=== PATIENT | female | born 2005 | race Caucasian/White ===

== ENCOUNTER 2024-04-29 23:38 | Emergency (ER) | payer MEDICAID, SELFPAY ==
[2024-04-29 23:43] VITALS: BP 134/78; PULSE 89; RESP 18; TEMP 37.2; O2SAT 97; O2SAT 99; BMI 28.0
--- NOTE | 2024-04-29 23:50 | ED.GENADULT ---
HPI - General Adult General Chief complaint: Unspecified Complaint, Adult Stated complaint: Swollen lymph nodes Time Seen by Provider: 04/30/24 00:21 History of Present Illness HPI narrative: CC: Swollen Lymph Nodes pt. seen in urgent care on 04/27/24--mono and strep was negative. wbc 15. comes in d /t swelling getting worse. was prescribed zpak. denies fevers, n/v, diarrhea. 18-year-old young woman presenting to the emergency department with concern of intensely sore throat. Has been sick for about 5 days and after a day or 2 of illness was seen in urgent care tested for mono and strep which was negative at that time. White count is little bit elevated. For apparent tonsillitis was initiated on azithromycin as a Z-Ammon. Has not had a fever. No rashes. Really hurts to swallow but not having trouble breathing. I note her also to be congested in the nasopharynx and she says this is relatively constant state of affairs with allergies. She is not having any abdominal pain. No particular illness exposure; no known mono exposure. Here with apparent boyfriend. They are planning to travel this holiday to [place] to visit his family. She is also expressing concern of a loss of hearing particularly in her right ear for some time now. Sometimes a ringing I believe. History of occasional need for steroids for suspected fibrotic lung disease or something like that. Related Data Home Medications ?Medication ?Instructions ?Recorded ?Confirmed albuterol 90 mcg-budesonide 80 2 inh inhalation ONCE 04/27/24 04/29/24 mcg/actuation HFA aerosol inhaler Previous Rx's ?Medication ?Instructions ?Recorded azithromycin 250 mg tablet See Rx Instructions PO .COMPLEX #6 04/27/24 (Zithromax Z-Ammon) tabs clindamycin HCl 300 mg capsule 300 mg PO Q6H 8 days #32 caps 04/30/24 Allergies Allergy/AdvReac Type Severity Reaction Status Date / Time Penicillins AdvReac Severe Anaphylaxis Verified 04/29/24 23:50 Review of Systems Status of ROS: Reports: 6 or more systems reviewed and unremarkable except as noted in History and below [facility] Medical History No significant past medical history Surgical History (Updated 04/30/24 @ 00:57 by Crow Williamson RN) No significant past surgical history Social History Smoking Status: Never smoker Second hand tobacco smoke exposure: No How often do you have a drink containing alcohol: never AUDIT-C Alcohol total score: 0 Non-prescribed substance use: denies use Exam Narrative: Exam Narrative: Very pleasant. Somewhat of a hot potato voice. Breathing easily. Lungs appear clear. Heart in regular rate and rhythm. There is no stridor. Does sound congested in the nasopharynx. There is no facial swelling erythema or tenderness. Bilateral TMs are occluded by dark cerumen. On the right side in particular it is a little deeper and I think would be encroaching on the tympanic membrane. Oropharynx is moist. Rather enlarged bilateral erythematous but not brightly-so tonsils with exudate. Symmetrically enlarged in size. I do not appreciate soft palate swelling. She also has symmetrical upper anterior cervical lymphadenopathy. No posterior lymphadenopathy. Neck is supple. Managing secretions. No trismus. Const: Vital Signs, click to edit/add: Vital Signs - 24 hr 04/29/24 23:43 04/29/24 23:43 04/30/24 02:03 Temperature 99.0 F 99.0 F Pulse Rate [Right Pulse Oximeter] 89 84 Respiratory Rate 18 18 Respiratory Rate [ Head] 18 Blood Pressure [Ri ght Upper Arm] 134/78 122/70 Pulse Oximetry 97 97 Oxygen Delivery Me thod Room Air Room Air 04/30/24 02:05 Temperature 99.0 F Pulse Rate [Right Pulse Oximeter] 84 Respiratory Rate 18 Respiratory Rate [ Head] Blood Pressure [Ri ght Upper Arm] 122/70 Pulse Oximetry Oxygen Delivery Me thod Documenting provider has reviewed patient's vital signs: yes Course Vital Signs Vital signs: Initial Vital Signs Temperature 99.0 F 04/29/24 23:43 Temperature Source Temporal Artery Scan 04/29/24 23:43 Pulse Rate 89 04/29/24 23:43 Respiratory Rate 18 04/29/24 23:43 Blood Pressure 134/78 04/29/24 23:43 Blood Pressure Mean 96 04/29/24 23:43 Blood Pressure Position Sitting 04/29/24 23:43 Pulse Oximetry 97 04/29/24 23:43 Oxygen Delivery Method Room Air 04/29/24 23:43 Vital Signs Temperature 99.0 F 04/29/24 23:43 Pulse Rate 89 04/29/24 23:43 Respiratory Rate 18 04/29/24 23:43 Blood Pressure 134/78 04/29/24 23:43 Pulse Oximetry 97 04/29/24 23:43 Oxygen Delivery Method Room Air 04/29/24 23:43 Temperature 99.0 F 04/30/24 02:05 Pulse Rate 84 04/30/24 02:05 Respiratory Rate 18 04/30/24 02:05 Blood Pressure 122/70 04/30/24 02:05 Pulse Oximetry 97 04/30/24 02:03 Oxygen Delivery Method Room Air 04/30/24 02:03 Medications Administered Medications: Discontinued Medications Generic Name Dose Route Start Last Admin Trade Name Jacob PRN Reason Stop Dose Admin Clindamycin HCl 300 mg 04/30/24 01:52 04/30/24 02:00 Clindamycin 150 Mg Capsule PO 04/30/24 01:53 300 mg ONCE ONE Administration Dexamethasone 12 mg 04/30/24 00:34 04/30/24 00:40 Dexamethasone 10 Mg/Ml Inj PO 04/30/24 00:35 12 mg ONCE ONE Administration Medical Decision Making MDM Narrative Medical decision making narrative: At a minimum has tonsillitis. Cause unclear but might be mononucleosis. Certainly possible that there are peritonsillar abscesses here although she is demonstrating no trismus and moving her neck without difficulty. Clearly the swelling though is affecting her speech. She is maintaining her secretions. TMs bilaterally are occluded and I would offer manual clean out and/or irrigation of her ears. I think would also benefit from steroid. I think symmetry is reassuring as is suppleness of neck movement and absence of trismus. I did offer CT imaging but I think that would at a minimum benefit from steroid dosing. She is familiar with steroids having received them for lungs before. Given dexamethasone. I did attempt manual removal of cerumen with ear curette. Did get some but this is as expected painful. Nursing returns to irrigate ears with 1:1 warm water and hydrogen peroxide. On reexamination still with significant cerumen but softer now on the right side. I do irrigate further and get nearly all of residual cerumen. Even after initial manual effort she had noted marked improvement in her hearing. Will monitor closely for worsening and potential need for imaging but I think will also change antibiotics to clindamycin and continue steroid course with prednisone. See patient discharge plan for further discussion Medical Records Medical records reviewed: Yes I reviewed the patient's medical records Discharge Plan Discharge Clinical Impression: Acute tonsillitis, Excessive cerumen in both ear canals, Allergic rhinitis Additional Instructions: A couple times a year you might benefit from placing some Debrox drops to help clear out your ear. Could than irrigate with warm 1:1 water to hydrogen peroxide. Considering your chronic nasal congestion/facial symptoms, you might benefit from regular use of [id number]-mudlfxy nasal steroid spray. I like 12 hour pseudoephedrine for decongestion myself. If you are desperate, oxymetazoline nasal spray can be beneficial but should not be used chronically; not more than 3-5 days at a time Can probably discontinue your last dose of azithromycin and we will switch up to clindamycin and prednisone from [facility]. (I apologize. We do not have any clindamycin in [facility] at the moment. Sending this in to your pharmacy) Sleep under the mist of a cool mist humidifier. Gargle with 1/4 tsp salt in 4 oz of warm water 2 - 3 times daily. Can take up to 600 mg of ibuprofen or up to 850 mg of acetaminophen per dose. Prescriptions: New clindamycin HCl 300 mg capsule 300 mg PO Q6H 8 Days Qty: 32 0RF No Action albuterol-budesonide 90-80 mcg/actuation HFA aerosol inhaler 2 inh inhalation ONCE Rx Instructions: as a single dose; may repeat up to 6 doses per day (12 inhalations) azithromycin [Zithromax Z-Ammon] 250 mg tablet See Rx Instructions PO .COMPLEX Qty: 6 0RF Rx Instructions: For 250 mg dose pack: take 500 mg today (day 1), then 250 mg for 4 days (days 2-5) PO Follow Up/Referrals: Provider,Not a Local [Primary Care Provider] - Stand Alone Forms: Shortlist Info Instructions
[2024-04-30] MEDS: dexAMETHasone 10 MG/ML inj 12 MG PO (00:40)
[2024-04-30] MEDS: CLINDAMYCIN 150 MG CAPSULE 300 MG PO (02:00)
[2024-04-30 02:03] VITALS: BP 122/70; PULSE 84; RESP 18; TEMP 37.2; O2SAT 97
[2024-04-30 02:05] VITALS: BP 122/70; PULSE 84; RESP 18; TEMP 37.2
== END 2024-04-30 02:05 | disposition home or self-care (01) ==
PROVIDERS: Emergency Provider Family Medicine
DX: J03.90 Acute tonsillitis, unspecified (principal); H61.23 Impacted cerumen, bilateral; J30.9 Allergic rhinitis, unspecified
CPT/HCPCS: 69210; 99283; 99284; A9270; J1100

== ENCOUNTER 2025-04-14 22:56 | Emergency (ER) | payer OTHER, BC, SELFPAY ==
--- OUTSIDE RECORDS SUMMARY | 2025-04-14 22:57 | XMS_ITS | Clinical Summary ---
Author Organization [facility] Address [address] [place] [address] Care Team Providers Care Hog Scraper Name Role Phone Unavailable Primary Care Provider Unavailabl e Allergies Active Allergy Reactions Criticality Noted Date Comments Penicillins Anaphylaxis,Hives High 08/08/2019 Medications beclomethasone (QVAR) 80 mcg/actuation inhaler Inhale 1 puff by mouth 2 (two) times a day. Active cetirizine (ZyrTEC) 10 MG tabletIndications :Environmental and seasonal allergies Take 1 tablet (10 mg total) by mouth at bedtime. 90 tablet 3 08/09/2019 10:00 AM MST 08/09/2019 Active albuterol 90 mcg/actuation inhalerIndication s:Mild intermittent asthma without complication Inhale 2 puffs by mouth every 4 (four) hours as needed for wheezing. 17 g 3 08/09/2019 10:45 AM MST 08/09/2019 Active Hospital, Clinic, or Other Facility Administered Medication Ordered Dose Route Frequency Start Date End Date Status ibuprofen (ADVIL) tablet 200 mgIndications:Tooth pain 200 mg oral Once 05/08/2016 Active Active Problems Problem Noted Date Diagnosed Date Status asthmaticus 08/08/2019 Mild intermittent asthma without complication Immunizations Immunization Administration Dates Next Due COVID-19 (Pfizer Monovalent, 12+ years) PURPLE CAP 09/28/2020,09/07/2020 DTaP 12/15/2007, 5,2003,10/23,2003 HPV-9 05/08/2016 Hepatitis A (Pediatric) 05/08/2016,06/26/2005 Hepatitis B (Pediatric) 10/29/2004,2003, Hib (PRP-T) 10/29/2004,2003,2003 IPV (Inactivated Polio Vaccine) 12/15/19 08,2003,2003,08/19 Influenza, Seasonal 08/09/2019(Deferred: - Will do at PCP) Influenza, Seasonal Pediatric 04/07/2016, 005,03/27/2004 MMR 12/15/2007,07/02/2004 Meningococcal MCV4P (Menactra) 05/08/2016 PCV7 (Pneumococcal Conjugate) 01/26/2005 ,10/29/2004,2003,09/11 Tdap 03/21/2015 Varicella 12/15/2007,07/02/2004 Family History Medical History Relation Name Comments Asthma Maternal Grandmother Cancer Mother Relation Name Status Comments Maternal Grandmother Mother Social History Tobacco Use Types Packs/Day Years Used Date Smoking Tobacco: Never Social Connections Answer Date Recorded Do your friends and family support you? Not on f ile 07/13/2020 What agencies support you? Not on file 07/13 Depression Answer Date Recorded Depression Not on file 12/05/2021 Transportation Needs Answer Date Record ed Lack reliable transportation Not on file 11/2020 Health Literacy Answer Date Recorded Understand medical condition Not on file 11/2020 Medication management Not on file 07/13/2020 Utilities Answer Date Recorded Financial Strain Not on file 06/18/2023 Comments Unknown Sex and Gender Information Value Date Recorded Sex Assigned at Female 08/08/2019 5:10 AM [facility] Legal Sex Female 12:06 PM [facility] Gender Identity Female 08/08/2019 5:10 AM [facility] Sexual Orientation Straight 08/08/2019 5: 10 AM [facility] Last Filed Vital Signs Vital Sign Reading Time Taken Comments Blood Pressure 111/54 08/08/2019 7:56 PM [facility] Pulse 96 08/09/2019 8:36 AM [facility] Temperature 37.4 C (99.3 F) 08/09/2019 8:36 AM [facility] Respiratory Rate 18 08/09/2019 8:36 AM [facility] Oxygen Saturation 92% 08/08/2019 8:00 PM MST Inhaled Oxygen Concentration - - Weight 71.2 kg (156 lb 15.5 oz) 08/08/2019 5:04 AM [facility] Height 165.1 cm (5' 5) 08/08/2019 5:04 AM [facility] Body Mass Index 26.12 08/08/2019 5:04 AM [facility] Plan of Treatment Health Maintenance Due Date Last Done Comments Chlamydia Screening 2003 Nutrition Education 2003 Pneumococcal Vaccine: 19-64 Years (1 of 2 - PPSV23) 03/23/2005 01/26/2005, 10/29/2004, 2003, Additional history exists Behavioral Health Screening 2015 HPV Vaccines (2 of 2 - Femal e/ Other 2-dose series) 11/06/2016 05/08/2016 Influenza Vaccine (#1) 2025 6, 07/02/2004, 03/27/2004 Tetanus Vaccines (DTaP,Tdap, Td) (7 - Td or Tdap) 03/21/2025 03/21/2015, 12/15/2007, 10/29/2004, Additional history exists Hepatitis B Vaccines Completed 10/29/2004, 10/29/2004, 2003, Additional history exists MMR Vaccine (Patient is immu ne to measles) Discontinued 12/15/2007, 07/02/2004 Varicella Vaccine (Patient i s immune to varicella) Discontinued 12/15/2007, 07/02/2004 Hepatitis A Vaccine (Patient is immune to Hepatitis A) Discontinued 05/08/2016, 06/26/2005 Insurance [facility] MEDICAID CHOICE Advance Directives * Full Code (Latest Code Status on File) Date Activated Date Inactivated Comments 08/08/2019 5:33 AM 08/09/2019 12:45 PM
--- OUTSIDE RECORDS SUMMARY | 2025-04-14 22:58 | XMS_ITS | Clinical Summary ---
Author Organization [facility] Address [address] [place], [place] [id number] Care Team Providers Care [employer] Assistant Principal Name Role Phone Javed Lucio MD Primary Care Prov ider Medications fluticasone (Flovent HFA) 110 MCG/ACT inhaler Inhale 1-2 puffs by mouth 2 times a day. 11/29/2019 Active cetirizine (Cetirizine HCl Childrens Alrgy) 5 MG/5ML syrup TAKE 10 ML BY MOUTH DAILY 03/19/2020 Active Active Problems Problem Noted Date Diagnosed Date Arthralgia 02/03/2019 Allergic shiners 02/03/2019 Abnormality of lung on CXR 02/03/2019 Acute back pain 02/03/2019 Bronchitis 02/03/2019 Encounter to establish care with new doctor 01/07 Asthma 02/03/2019 Social History Tobacco Use Types Packs/Day Years Used Date Smoking Tobacco: Never Assessed [facility] Housing Answer Date Recorded Living Situation Not on file 05/21/2023 Housing Problems Not on file 05/21/2023 [facility] Safety Answer Date Recorded Threatened Not on file 05/21/2023 Insulted Not on file 05/21/2023 Physically Hurt Not on file 05/21/2023 Scream Not on file 05/21/2023 Comments Unknown Sex and Gender Information Value Date Recorded Sex Assigned at Not on file Legal Sex Female 1:43 PM EST Gender Identity Not on file Sexual Orientation Not on file Plan of Treatment Not on file Care Teams [employer] Assistant Principal Relationship Specialty Start Date End Date Javed Lucio MD PCP - General Pediatrics 02/01/19
--- OUTSIDE RECORDS SUMMARY | 2025-04-14 22:58 | XMS_ITS | Clinical Summary ---
Author Organization [facility] Address [address] [place] [id number] Care Team Providers Care Insurance And Benefits Clerk Name Role Phone Delmar Annapepe REGGIE Primary Care Provider [phone] Allergies Active Allergy Reactions Criticality Noted Date Comments Penicillins Anaphylaxis,Hives High 08/08/2019 Medications cetirizine (ZYRTEC) 1 mg/mL ORAL solution Active beclomethasone dipropionate (QVAR REDIHALER) 40 mcg/actuation inhaler Inhale 1 puff into the lungs 2 times daily for Maintenance Therapy for Asthma. 10.6 g 3 2 Active budesonide (PULMICORT FLEXHALER) 90 mcg/actuation inhaler Inhale 1 puff into the lungs 2 times daily for Maintenance Therapy for Asthma. 1 each 3 2 Active tretinoin (RETIN-A) 0.025 % cream Apply topically nightly at bedtime for Acne Vulgaris. 45 g 1 2 Active albuterol HFA (PROAIR HFA) 90 mcg/actuation inhaler Inhale 1-2 puffs into the lungs every 6 hours as needed for Bronchospasm Prevention. 8.5 g 1 2 Active Immunizations Immunization Administration Dates Next Due DTaP 12/15/2007, 5,2003,10/23,2003 HPV9 (GARDASIL 9) 05/08/2016 Hep A, ped/adol, 2 dose 05/08/2016,06/26/2005 Hep A, unspecified formulation 05/08/2016 Hep B, adolescent or pediatric 10/29/2004,2003,2003 Hib (PRP-T) 10/29/2004,2003,2003 Hib-Hep B 10/29/2004,2003,2003 IPV (Inactivated Poliovirus) 12/15/2007, 2003,2003,08/19 Influenza, seasonal, injecta ble (6 mos+) 04/07/2016,07/02/2004,03/27/2004 MMR 12/15/2007,07/02/2004 PEDIATRIC Influenza, injecta ble, quadrivalent, PF 04/07/2016,07/02/2004,03/27/2004 PFIZER, SARS-COV2 (COVID-19) VACCINE 08/15/2021, 09/28/2020,09/07/2020 Pneumococcal conjugate PCV 7 01/26/2005, 10/29/2004,2003,09/11 Tdap 03/21/2015 meningococcal MCV4P 05/08/2016 varicella (VARIVAX) 12/15/2007,07/02/2004 Family History Medical History Relation Comments No Known Problems Mother Quadricuspid a ortic valve Relation Status Comments Father Alive Mother Alive Social History Tobacco Use Types Packs/Day Years Used Date Smoking Tobacco: Never Smokeless Tobacco: Never Alcohol Use Standard Drinks/Week Comments No 0 (1 standard drink = 0.6 oz pur e alcohol) PHQ-2 Answer Date Recorded PHQ-2 SCORE 0 01/14/2023 Comments No Sex and Gender Information Value Date Recorded Sex Assigned at Female 08/08/2021 1:54 PM [facility] Legal Sex Female 9:21 PM MDT Gender Identity Female 08/08/2021 1:54 PM MST Sexual Orientation Not on file Last Filed Vital Signs Vital Sign Reading Time Taken Comments Blood Pressure 129/78 01/14/2023 9:35 AM MDT Pulse 71 01/14/2023 9:35 AM MDT Temperature 36.3 C (97.4 F) 01/14/2023 9:35 AM MDT Respiratory Rate 20 01/14/2023 9:35 AM MDT Oxygen Saturation 98% 01/14/2023 9:35 AM MDT Inhaled Oxygen Concentration - - Weight 79.1 kg (174 lb 6.4 oz) 01/14/2023 9:35 A M MDT Height 165.1 cm (5' 5) 01/14/2023 9:35 AM MDT Body Mass Index 29.02 01/14/2023 9:35 AM MDT Plan of Treatment Health Maintenance Due Date Last Done Comments Cervical Cancer Screening (P ap Smear) 2003 Chlamydia/Gonorrhea Screening 2003 Hepatitis B Screening Adult 2003 Syphilis Screening 2003 HPV Vaccine Adult (2 - 2-dos e series) 11/06/2016 05/08/2016 HIV Screening (Ages 15-65/One-time) 2018 Hepatitis C Antibody Screening 2021 [employer] ([employer]) 2021 Influenza Vaccine (#1) 2025 6, 04/07/2016, 07/02/2004, Additional history exists Tdap/Td Vaccine (2 - Td or Tdap) 03/21/2025 03/21/20 15 Insurance [facility] [place] [id number] MEDICAID [facility] Care Teams Insurance And Benefits Clerk Relationship Specialty Start Date End Date Rhiannon Jacobsen FNP PCP - General Nurse Practitioner 01/14/23
--- OUTSIDE RECORDS SUMMARY | 2025-04-14 22:58 | XMS_ITS | Clinical Summary ---
Author Organization [facility] Address [address] [place] [address] Care Team Providers Care Special Forces Medical Sergeant Name Role Phone Javed Lucio MD Primary Care Prov ider Allergies No known active allergies Medications fluticasone propionate (FLOVENT HFA) 110 mcg/actuation inhaler Inhale 1-2 puffs by mouth 2 times a day. 10.6 g 2 11/29/2019 Active cetirizine (ZyrTEC) 1 mg/mL syrup TAKE 10 ML BY MOUTH DAILY 118 mL 03/19/2020 Active Active Problems Problem Noted Date Diagnosed Date Asthma 02/03/2019 Assessment & Plan (02/17/2019 10:50 AM MDT): Asthma is controlled. Continue with asthma action plan of QVAR and albuterol every 6 hours prn to manage coughing or wheezing episodes. Follow up as needed. Assessment & Plan (02/03/2019 11:07 AM MDT): Reviewed in detail trend of condition, discussed asthma action plan. Has been taking albuterol. -Discussed in detail with parent the need to start treatments before child gets to the red zone. -Discussed the asthma zones. Green zone: Start use of QVAR, take once a day and take albuterol every 6 hours prn for coughing or wheezing episodes. Yellow zone (sick): Add albuterol daily. -Prescription for Albuterol and Floven in place. -Discussed worsening symptoms to report: worsening trouble in breathing, fatigue from breathing too fast, vomiting, or new fevers. -Follow up in 2 weeks. Acute back pain 02/03/2019 Assessment & Plan (02/17/2019 11:02 AM MDT): Patient continues to have back pain. Continue frequent stretching. Labs ordered to rule out other metabolic causes. Will follow up with parent on results. Follow up as needed. Assessment & Plan (02/03/2019 12:32 PM MDT): Patient c/o acute back pain. Will continue to monitor symptoms. Advised need for frequent stretching. Pending past records will determine what steps are needed. Follow up in 2 weeks. Arthralgia 02/03/2019 Assessment & Plan (02/17/2019 11:05 AM MDT): Still working on obtaining past medical records. Patient continues to have ongoing arthralgia. TSH, CBC and CMP ordered to assess other metabolic problems. Will follow up with parent on results. Assessment & Plan (02/03/2019 11:04 AM MDT): Patient has ongoing arthralgia. Pending obtaining past medical records, will determine what labs are needed. Should start keeping record of pain. Follow up in 2 weeks. Bronchitis 02/03/2019 Assessment & Plan (02/03/2019 10:58 AM MDT): Patient is here in follow up to ED visit on 01/29/2019, was diagnosed with bronchitis. Reviewed chest X-ray results on 01/29/2019. Impression: Small focal airspace opacity at the medial right lung base, in area of previously seen pneumonia on prior radiograph. Recommend follow-up chest radiograph to ensure resolution. If this opacity persists, recommend CT to evaluate for possible underlying process such as sequestration. Allergic shiners 02/03/2019 Assessment & Plan (02/17/2019 11:07 AM MDT): Continue with Cetirizine 10mg daily through the fall season. -Advised taking local honey to help with allergy symptoms. -Keep head elevated, especially during sleep -Cool air humidifier in sleeping room -Allergen Pediatric Profile 11 and Allergen Respiratory 11 RM PNL ordered, will follow up with parents on results. -Follow up for worsening symptoms including difficulty in breathing, fever, nose bleeding, headaches and fever Assessment & Plan (02/03/2019 11:00 AM MDT): -Start with Cetirizine or Loratadine 10mg daily -Advised taking local honey to help with allergy symptoms. -Keep head elevated, especially during sleep -Cool air humidifier in sleeping room -Follow up for worsening symptoms including difficulty in breathing, fever, nose bleeding, headaches and fever Encounter to establish care with new doctor 01/07 Assessment & Plan (02/03/2019 11:10 AM MDT): -I reviewed the new patient paper work filled by the parent with them as well as the past medical history, family and social Hx with parent. -Reviewed after-hours policies with parent -Mother will sign Abnormality of lung on CXR 02/03/2019 Assessment & Plan (02/17/2019 11:01 AM MDT): With history of lung abnormality of chest X-ray and still working on obtaining records repeat chest-x ray done. Will follow up with parent on results. Assessment & Plan (02/03/2019 11:34 AM MDT): Mother repoerted lung abnormality retriving records of past imaging. Discussed asthma care with parent and patient Follow up in 2 weeks for reassessment. Social History Tobacco Use Types Packs/Day Years Used Date Smoking Tobacco: Never Smokeless Tobacco: Never Alcohol Use Standard Drinks/Week Comments Never 0 (1 standard drink = 0.6 oz pur e alcohol) AUDIT-C Answer Date Recorded Frequency of Alcohol Consumption Never 01/29/2019 Average Number of Drinks Not on file 019 Frequency of Binge Drinking Not on file 01/06 Comments Unknown Sex and Gender Information Value Date Recorded Sex Assigned at Not on file Legal Sex Female 9:03 AM MDT Gender Identity Not on file Sexual Orientation Not on file Last Filed Vital Signs Vital Sign Reading Time Taken Comments Blood Pressure 116/74 02/17/2019 10:24 AM MDT Pulse 56 02/17/2019 10:24 AM MDT Temperature 36.3 C (97.4 F) 02/17/2019 10:24 AM MDT Respiratory Rate 16 02/17/2019 10:2 4 AM MDT Oxygen Saturation 97% 02/17/2019 10: 24 AM MDT Inhaled Oxygen Concentration - - Weight 65.7 kg (144 lb 12.8 oz) 019 10:24 AM MDT Height 163.8 cm (5' 4.5) 02/17/2019 10 :24 AM MDT Body Mass Index 24.47 02/17/2019 10:24 AM MDT Plan of Treatment Health Maintenance Due Date Last Done Comments Hepatitis C Screening 2003 HPV Vaccines (1 - 3-dose series) 2018 MenB Vaccine (1 of 2 - Standard) 2019 Td/Tdap 2021 Pneumococcal Vaccine: Peds a nd At-Risk Patients < 65 (1 of 2 - PCV) 2022 Pap Smear 2024 COVID-19 Vaccine ( - 2023-2 5 season) 2025 Influenza Vaccine (#1) 2025 Meningococcal Vaccine Aged Out No olegario dang eligible based on patient's age to complete this topic Insurance [employer] Care Teams Special Forces Medical Sergeant Relationship Specialty Start Date End Date Javed Lucio MD PCP - General Pediatrics 02/01/19
--- OUTSIDE RECORDS SUMMARY | 2025-04-14 22:58 | XMS_ITS | Clinical Summary ---
Author Organization [facility] Address [address] [address] Phone Care Team Providers Care Second Language Tutor Name Role Phone Javed Lucio M.D. Primary Care Pr ovider Source Comments [facility], [place], [place] is fully implemented on [employer]. [facility] Allergies No known active allergies Medications * Be aware that medications may not be up to date as of this document. Always verify current medications with patient. ALBUTEROL INH Active Beclomethasone Dipropionate (QVAR INH) Active cetirizine (ZYRTEC) 1 MG/ML Syrup Active Social History Tobacco Use Types Packs/Day Years Used Date Smoking Tobacco: Never Assessed Community Connections Answer Date Recor ded Caregiver PCP help Not on file 08/07/2019 Child PCP help Not on file 08/07/2019 Potential social isolation Not assesed 08/06 Appointment help Not on file 08/07/2019 Benefits help needed: Not on file 08/07/2019 Education concerns Not assesed 08/07/2019 Alcohol / Marijuana Use Answer Date Rec orded Alcohol/Marijuana- Caregiver: Not on file Alcohol last 12 mos: Not on file 09/01/2020 Marijuana- Patient Use: No 09/02/19 19 Tobacco Use Answer Date Recorded Tobacco: Caregiver Use Not on file 0 Tobacco- Patient Use: No 01/13/2020 Depression risk Answer Date Recorded Caregiver Depression: Not on file 12/31/2019 Caregiver suicidal thoughts: Not on file Last PHQ-2 Not on file 12/31/2019 Last PHQ-9 Not on file 12/31/2019 Last EPDS Not on file 12/31/2019 Last EPDS self harm item: Not on file 2019 Transportation Answer Date Recorded 2 12/26/2021 Comments Unknown Sex and Gender Information Value Date Recorded Sex Assigned at Not on file Legal Sex Female 12:23 PM ZAID Gender Identity Not on file Sexual Orientation Not on file Last Filed Vital Signs Vital Sign Reading Time Taken Comments Blood Pressure 111/58 08/08/2019 3:59 AM MST Pulse 149 08/08/2019 3:59 AM MST Temperature 37 C (98.6 F) 08/08/2019 3:59 AM MST Respiratory Rate 20 08/08/2019 3:59 AM MST Oxygen Saturation 100% 08/08/2019 3:59 AM MST Inhaled Oxygen Concentration - - Weight 67.8 kg (149 lb 7.6 oz) 08/07/2019 10:16 PM MST Height 104.2 cm (3' 5.02) 12/01/2007 8:37 AM MD Martínez Body Mass Index - - Plan of Treatment Health Maintenance Due Date Last Done Comments Pneumococcal Vaccine (PCV): Pediatric 0-5y and At-Risk 6-64y Discontinued 01/26/2005, 5, 2003, Additional history exists Insurance [facility] MEDICA[employer] CHO[employer] [facility] [place] [id number] [facility] Care Teams Second Language Tutor Relationship Specialty Start Date End Date Javed Lucio M.D. [address] [facility] [place] [address] PCP - General General Pediatrics 08/07/19
--- OUTSIDE RECORDS SUMMARY | 2025-04-14 22:58 | XMS_ITS | Referral Summary ---
Author Organization [facility] Address [address] [place] [address] Care Team Providers Care Container Finisher Name Role Phone Javed Lucio MD Primary [...] 02/17/2019 10:24 AM MDT Plan of Treatment Not on file Insurance [employer] [place] [address] [employer] Care Teams Container Finisher Relationship Specialty Start Date End Date Javed Lucio MD PCP - General Pediatrics 02/01/19
[2025-04-14 23:08] VITALS: BP 143/82; PULSE 61; RESP 18; TEMP 37.5; O2SAT 97; BMI 27.5
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
--- OUTSIDE RECORDS SUMMARY | 2025-04-15 00:20 | XMS_ITS | Clinical Summary ---
Author Organization [facility] Address [address] [place] [address] Care Team Providers Care Welder Operator Name Role Phone Javed Lucio MD Primary [...] patient's age to complete this topic Insurance [facility] Member Subscriber Plan / Payer (Ef fective 2019-Present) Name:Emeli Moreland Relation to Subscriber:Self Name:Emeli Moreland Payer ID:Not on file Group ID:Not on file Type:Not on file Address: [facility] [address] [place] [address] [facility] Care Teams Welder Operator Relationship Specialty Start Date End Date Javed Lucio MD PCP - General Pediatrics 02/01/19
--- OUTSIDE RECORDS SUMMARY | 2025-04-15 00:20 | XMS_ITS | Clinical Summary ---
Author Organization [facility] Address [address] [place] [address] Care Team Providers Care Property Appraiser Name Role Phone Delmar Annapepe REGGIE Primary Care Provider Allergies Active Allergy Reactions Criticality Noted Date [...] Sex Assigned at Female 08/08/2021 1:54 PM [facility] Legal Sex Female 9:21 PM MDT Gender [...] 15-65/One-time) 2018 Hepatitis C Antibody Screening 2021 [employer] ([employer]) 2021 Influenza Vaccine (#1) 2025 6, 04/07/2016, 07/02/2004, Additional history exists Tdap/Td Vaccine (2 - Td or Tdap) 03/21/2025 03/21/20 15 Insurance [facility] [place] [id number] MEDICAID [facility] Care Teams Property Appraiser Relationship Specialty Start Date End Date Rhiannon Jacobsen FNP PCP - General Nurse Practitioner 01/14/23
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
--- OUTSIDE RECORDS SUMMARY | 2025-04-15 00:20 | XMS_ITS | Referral Summary ---
Author Organization [employer] Address [address] [place] [address] Care Team Providers Care Preforms Laminator Name Role Phone Javed Lucio MD Primary [...] Plan of Treatment Not on file [place] [address] [employer] Care Teams Preforms Laminator Relationship Specialty Start Date End Date Javed Lucio MD PCP - General Pediatrics 02/01/19
--- OUTSIDE RECORDS SUMMARY | 2025-04-15 00:20 | XMS_ITS | Clinical Summary ---
Author Organization [facility] Address [address] [place] [address] Care Team Providers Care Product Marketing Intern Name Role Phone Unavailable Primary Care Provider [...] Sex Assigned at Female 08/08/2019 5:10 AM [facility] Legal Sex Female 12:06 PM [facility] Gender Identity Female 08/08/2019 5:10 AM [facility] Sexual Orientation Straight 08/08/2019 5: 10 AM [facility] Last Filed Vital Signs Vital Sign Reading Time Taken Comments Blood Pressure 111/54 08/08/2019 7:56 PM [facility] Pulse 96 08/09/2019 8:36 AM [facility] Temperature 37.4 C (99.3 F) 08/09/2019 8:36 AM [facility] Respiratory Rate 18 08/09/2019 8:36 AM [facility] Oxygen Saturation 92% 08/08/2019 8:00 PM MST Inhaled Oxygen Concentration - - Weight 71.2 kg (156 lb 15.5 oz) 08/08/2019 5:04 AM [facility] Height 165.1 cm (5' 5) 08/08/2019 5:04 AM [facility] Body Mass Index 26.12 08/08/2019 5:04 AM [facility] Plan of Treatment Health Maintenance Due [...]
--- OUTSIDE RECORDS SUMMARY | 2025-04-15 00:20 | XMS_ITS | Clinical Summary ---
Author Organization Address [address] [address] Phone Care Team Providers Care Coil Repair Technician Name Role Phone Javed Lucio M.D. Primary Care Pr ovider Source Comments , [place], [place] is fully implemented on [employer]. Allergies No known active allergies Medications * [...] history exists Insurance [facility] MEDICA[employer] CHOICE [facility] [place] [id number] [employer] Care Teams Coil Repair Technician Relationship Specialty Start Date End Date Javed Lucio M.D. [address] [facility] [place] [address] PCP - General General Pediatrics 08/07/19
== END 2025-04-15 00:22 | disposition home or self-care (01) ==
LOC: ED 04-15 00:18
PROVIDERS: Emergency Provider Family Medicine
DX: M54.50 Low back pain, unspecified (principal); V49.50XA Passenger injured in collision with unspecified motor vehicles in traffic accident, initial encounter
CPT/HCPCS: 99283